=== PATIENT | male | born 1950 | race Caucasian/White ===

== ENCOUNTER 2019-08-13 15:35 | Emergency (ER) | payer MEDICARE ==
[~2019-08-13] VITALS: Ht 170.2 cm; Wt 87.0 kg
[2019-08-13] MEDS ORDERED: LISINOPRIL5 MG PO (15:56)
[2019-08-13] MEDS ORDERED: ATENOLOL50 MG PO (15:56)
[2019-08-13] MEDS ORDERED: BAYER CHEWABLE81 MG PO (15:56)
[2019-08-13] MEDS ORDERED: SIMVASTATIN40 MG PO (15:57)
[2019-08-13] MEDS ORDERED: PLAVIX75 MG PO (15:57)
[2019-08-13] MEDS ORDERED: HYDROCHLOROTHIA50 MG PO (15:59)
[2019-08-13] MEDS ORDERED: METFORMIN500 M2 PO (16:00)
[2019-08-13 16:13] LABS: HEMOGLOBIN 13.7 g/dl (14.0-18.0); IMMATURE GRANULOCYTES 0.7 % (0.0-5.0); MEAN CORPUSCULAR HGB 29.5 pG CALC (26.0-32.0); MEAN CORPUSCULAR HGB CONC 34.3 g/dL CAL (32.0-36.0); NEUT# 12.86 thou/uL (1.82-7.42); RED BLOOD COUNT 4.65 mill/uL (4.70-6.10); RED CELL DISTRI WIDTH 12.3 % (11.5-15.5)
[2019-08-13 16:26] LABS: ALBUMIN 4.3 g/dL (3.2-5.0); ALKALINE PHOSPHATASE 88 u/l (38-126); ANION GAP 13 (6-22 (CALC)); BILIRUBIN, TOTAL 0.7 mg/dL (0.0-1.4); BUN 18 mg/dL (8-23); BUN/CREATININE RATIO 19 (12-20 (CALC)); CARBON DIOXIDE 31 mmol/l (22-30); CHLORIDE 92 mmol/l (95-108); CREATININE 0.9 mg/dL (0.7-1.3); GFR > 60 ML/MIN (>=60 (CALC)); GFR FOR AFR.AMER. > 60 ML/MIN (>=60 (CALC)); POTASSIUM 4.4 mmol/l (3.5-5.1); SGOT/AST 18 u/l (19-48); SODIUM 131 mmol/l (137-146); TOTAL PROTEIN 7.3 g/dL (6.3-8.2)
[2019-08-13 17:11] LABS: URINE BILIRUBIN - DIPSTICK NEGATIVE (NEGATIVE); URINE BLOOD DIPSTICK NEGATIVE (NEGATIVE); URINE COLOR YELLOW; URINE GLUCOSE - DIPSTICK NEGATIVE (NEGATIVE); URINE KETONE NEGATIVE (NEGATIVE); URINE LEUK ESTERASE NEGATIVE (NEGATIVE); URINE NITRITE - DIPSTICK NEGATIVE (Negative); URINE PH 6.5 (4.5-8.0); URINE PROTEIN - DIPSTICK NEGATIVE (NEG-TRACE); URINE UROBILINOGEN - DIPSTICK 0.2 E.U./dL (0.2)
[2019-08-13 17:30] LABS: BARBITURATES NEGATIVE (NEGATIVE); COCAINE NEGATIVE (NEGATIVE); METHADONE NEGATIVE (NEGATIVE); TETRAHYDROCANNABIONOL NEGATIVE (NEGATIVE); TRICYLIC ANTIDEPRESSANTS NEGATIVE (NEGATIVE)
[2019-08-13 17:31] LABS: OXCYCODONE POSITIVE (NEGATIVE)
[2019-08-13] MEDS ORDERED: BACTRIM DS1 TAB PO (17:41)
[2019-08-13 17:59] VITALS: BP 164/77
== END 2019-08-13 17:57 | disposition home or self-care (01) ==
LOC: ED 15:35
DX: K13.0 Diseases of lips (principal); E11.9 Type 2 diabetes mellitus without complications; I10 Essential (primary) hypertension; Z86.73 Personal history of transient ischemic attack (TIA), and cerebral infarction without residual deficits; Z79.84 Long term (current) use of oral hypoglycemic drugs

== ENCOUNTER 2019-11-04 22:36 | Observation (INO) | payer MEDICARE ==
[~2019-11-04] VITALS: Ht 170.2 cm; Wt 81.0 kg
[~2019-11-04 22:36] MED LIST: ATENOLOL50 MG PO; BACTRIM DS1 TAB PO; BAYER CHEWABLE81 MG PO; HYDROCHLOROTHIA50 MG PO; LISINOPRIL5 MG PO; METFORMIN500 M2 PO; PLAVIX75 MG PO; SIMVASTATIN40 MG PO
[2019-11-04] MEDS ORDERED: CUBICIN500 MG IV (23:16)
[2019-11-04] MEDS ORDERED: AMBIEN5 MG PO (23:16)
[2019-11-04 23:19] LABS: IMMATURE GRANULOCYTES 1.4 % (0.0-5.0); MEAN CELL VOLUME 89.6 fL CALC (80.0-100.0); MEAN CORPUSCULAR HGB 27.9 pG CALC (26.0-32.0); MEAN CORPUSCULAR HGB CONC 31.1 g/dL CAL (32.0-36.0); NEUT# 10.37 thou/uL (1.82-7.42); RED BLOOD COUNT 3.66 mill/uL (4.70-6.10); RED CELL DISTRI WIDTH 13.1 % (11.5-15.5)
[2019-11-04 23:22] LABS: HEMATOCRIT 32.8 % (39.0-50.0); HEMOGLOBIN 10.2 g/dl (14.0-18.0)
[2019-11-04] MEDS ORDERED: OXYCODONE5 M1 PO (23:22)
[2019-11-04 23:36] LABS: ALKALINE PHOSPHATASE 125 u/l (38-126); BUN 24 mg/dL (8-23); BUN/CREATININE RATIO 17 (12-20 (CALC)); CARBON DIOXIDE 33 mmol/l (22-30); CHLORIDE 94 mmol/l (95-108); CREATININE 1.5 mg/dL (0.7-1.3); GFR 47 ML/MIN (>=60 (CALC)); GFR FOR AFR.AMER. 56 ML/MIN (>=60 (CALC)); SODIUM 133 mmol/l (137-146); TOTAL PROTEIN 6.6 g/dL (6.3-8.2)
[2019-11-04 23:37] LABS: ALBUMIN 3.3 g/dL (3.2-5.0); ANION GAP 10 (6-22 (CALC)); BILIRUBIN, TOTAL 0.4 mg/dL (0.0-1.4); POTASSIUM 3.5 mmol/l (3.5-5.1); SGOT/AST 51 u/l (19-48)
[2019-11-04 23:48] LABS: MYOGLOBIN 69 ng/mL (0 - 121)
[2019-11-05 02:20] VITALS: BP 118/66
[2019-11-05 04:29] VITALS: BP 117/70
[2019-11-05 06:57] LABS: HEMATOCRIT 31.4 % (39.0-50.0); HEMOGLOBIN 9.9 g/dl (14.0-18.0); IMMATURE GRANULOCYTES 1.4 % (0.0-5.0); MEAN CORPUSCULAR HGB CONC 31.5 g/dL CAL (32.0-36.0); NEUT# 9.68 thou/uL (1.82-7.42); RED BLOOD COUNT 3.53 mill/uL (4.70-6.10); RED CELL DISTRI WIDTH 13.2 % (11.5-15.5)
[2019-11-05 08:17] VITALS: BP 139/53
[2019-11-05] MEDS ORDERED: SENOKOT EXTRA17.2 MG PO (11:20)
== END 2019-11-05 12:43 | disposition home or self-care (01) ==
LOC: ED 22:36 → ED-I 11-05 01:38 → ED 11-05 01:53 → MS2 11-05 01:54
PROVIDERS: Emergency Medicine; ADMIT Internal Medicine; ATTEND Internal Medicine
DX: R07.81 Pleurodynia (principal); D72.829 Elevated white blood cell count, unspecified; K59.00 Constipation, unspecified; E11.9 Type 2 diabetes mellitus without complications; I10 Essential (primary) hypertension; E78.5 Hyperlipidemia, unspecified; G89.29 Other chronic pain; M54.9 Dorsalgia, unspecified; Z86.73 Personal history of transient ischemic attack (TIA), and cerebral infarction without residual deficits; Z79.84 Long term (current) use of oral hypoglycemic drugs; Z98.890 Other specified postprocedural states; Z79.2 Long term (current) use of antibiotics; Z79.82 Long term (current) use of aspirin; Z20.828 Contact with and (suspected) exposure to other viral communicable diseases
CPT/HCPCS: G0378; Q9967

== ENCOUNTER 2020-01-22 15:48 | Inpatient (IN) | payer MEDICARE ==
[~2020-01-22] VITALS: Ht 170.2 cm; Wt 79.0 kg
[~2020-01-22 15:48] MED LIST changes: +AMBIEN5 MG PO; +CUBICIN500 MG IV; +OXYCODONE5 M1 PO; +SENOKOT EXTRA17.2 MG PO
--- NOTE | 2020-01-22 15:48 | NUR ---
PT TO ROOM VIA EMS
--- NOTE | 2020-01-22 16:50 | NUR ---
AT BEDSIDE. URINE COLLECTED AT THIS TIME. IV FLUIDS INFUSING WITHOUT COMPLICATIONS. STABLE ON MONITOR.
[2020-01-22 16:58] LABS: IMMATURE GRANULOCYTES 0.4 % (0.0-5.0); MEAN CELL VOLUME 88.6 fL CALC (80.0-100.0); MEAN CORPUSCULAR HGB 28.8 pG CALC (26.0-32.0); MEAN CORPUSCULAR HGB CONC 32.5 g/dL CAL (32.0-36.0); NEUT# 10.58 thou/uL (1.82-7.42); RED BLOOD COUNT 4.93 mill/uL (4.70-6.10); RED CELL DISTRI WIDTH 13.9 % (11.5-15.5)
[2020-01-22 17:03] LABS: HEMATOCRIT 43.7 % (39.0-50.0); HEMOGLOBIN 14.2 g/dl (14.0-18.0)
[2020-01-22 17:14] LABS: URINE BILIRUBIN - DIPSTICK NEGATIVE (NEGATIVE); URINE BLOOD DIPSTICK LARGE (NEGATIVE); URINE COLOR YELLOW; URINE GLUCOSE - DIPSTICK NEGATIVE (NEGATIVE); URINE KETONE NEGATIVE (NEGATIVE); URINE PROTEIN - DIPSTICK 30 mg/dL (NEG-TRACE)
[2020-01-22 17:17] LABS: URINE LEUK ESTERASE MODERATE (NEGATIVE); URINE NITRITE - DIPSTICK POSITIVE (Negative)
[2020-01-22 17:17] LABS: ALBUMIN 3.8 g/dL (3.2-5.0); ALKALINE PHOSPHATASE 91 u/l (38-126); ANION GAP 13 (6-22 (CALC)); BUN 25 mg/dL (8-23); BUN/CREATININE RATIO 27 (12-20 (CALC)); CARBON DIOXIDE 35 mmol/l (22-30); CHLORIDE 90 mmol/l (95-108); CREATININE 0.9 mg/dL (0.7-1.3); GFR > 60 ML/MIN (>=60 (CALC)); GFR FOR AFR.AMER. > 60 ML/MIN (>=60 (CALC)); POTASSIUM 3.7 mmol/l (3.5-5.1); SGOT/AST 23 u/l (19-48); SODIUM 134 mmol/l (137-146); TOTAL PROTEIN 6.8 g/dL (6.3-8.2)
[2020-01-22 17:19] LABS: BILIRUBIN, TOTAL 0.8 mg/dL (0.0-1.4)
[2020-01-22 17:32] LABS: URINE BACTERIA MODERATE hpf; URINE RBC 25-50 RBC/hpf (0-5); URINE WBC 50-100 WBC/hpf (0-5)
--- NOTE | 2020-01-22 17:45 | NUR ---
IV MEDS INFUSING WITHOUT COMPLICATIONS. STABLE ON MONITOR. REMAINS AT BEDSIDE. NO COMPLAINTS AT THIS TIME.
--- NOTE | 2020-01-22 18:45 | NUR ---
PT IN RADIOLOGY AT THIS TIME.
[2020-01-22] MEDS ORDERED: LORTAB 1010 MG PO (19:00)
--- NOTE | 2020-01-22 19:00 | NUR ---
RETURNED FROM CT.
--- NOTE | 2020-01-22 19:10 | NUR ---
PT BACK FROM RADIOLOGY. RECONNECTED TO EQUIP. PT RESTING. AT BEDSIDE.
--- NOTE | 2020-01-22 19:36 | NUR ---
REPEAT LACTIC DRAWN. PT C/O PAIN WHEN LEFT ARM TOUCHED. STATES PINCHED NERVE FROM C3-7.
--- NOTE | 2020-01-22 20:44 | NUR ---
REPORT TO SERGIO/NURSE/MED-SURG.
--- NOTE | 2020-01-22 20:50 | NUR ---
TO FLOOR VIA STRETCHER WITH POCKET MONITOR. PT TRANSFERRED TO BED WITH SLIDER. WAS OFFERED TO ESCORT PT TO FLOOR BUT DECLINED. SHE HAD WRITTEN A NOTE FOR ME TO GIVE TO ADMISSION NURSE.
[2020-01-22 20:55] VITALS: BP 125/59
--- NOTE | 2020-01-22 20:55 | NUR ---
RECEIVED REPORT FROM NURSE YOHANA, PATIENT TRANSPORTED VIA BED, USING THREE PERSON ASSIST SLID TO BED, PATIENT REPOSITIONED ORINETED TO ROOM AND CALL LIGHT SYSTEM
--- NOTE | 2020-01-22 22:19 | NUR ---
SPOKE TO , PATIENT IS REFERRED TO A UROLOGIST, AND CONSENT FOR CYSTOSCOPY THAT NEEDS TO BE SIGNED, STATED SHE WILL BE COMING TOMORROW AROUND 8AM.
--- NOTE | 2020-01-22 22:49 | NUR ---
CONTACTED DR. PASTOR ABOUT ORDER FOR EKG MADE AWARE THE EKG DONE AT ED EARLIER WITH ORDER TO DISCONTINUE THE OTHER EKG ORDER.
[2020-01-23] VITALS (10 sets, daily range): BP systolic 81–140; BP diastolic 33–71
--- NOTE | 2020-01-23 01:16 | NUR ---
PATIENT APPEARS TO BE SLEEPING WITH EYES CLOSED, BREATHING EVEN UNLABORED CALL LIGHT AT REACH.
--- NOTE | 2020-01-23 04:06 | NUR ---
PATIENT RESTING INBED WITH EYES CLOSED, BREATHING EVEN UNLABORED, NO DISCOMFORTS NOTED AT THIS TIMECALL LIGHT AT REACH/
--- NOTE | 2020-01-23 07:59 | NUR ---
RECIEVED REPORT FROM Emmanuel HUERTA RN. PT RESTING IN LOW FOWLERS POSITION WITH AT BEDSIDE UPON ENTERING ROOM. INTRODUCED SELF TO PT AND DISCUSSED POC. PT IS A/O X2. ASSESSMENT AND VITALS COMPLETED AT THIS TIME.TEMP 100.7, BP 113/52, HR 75, O2 96% ON ROOM AIR. RESPIRATIONS ARE EVEN AND UNLABORED WITH NO SIGNS OF DISTRESS NOTED. LUNG SOUNDS ARE CLEAR. HEART RHYTHM IS NORMAL WITH TELE IN PLACE. BOWEL SOUNDS ARE ACTIVE IN ALL QUADRANTS, LAST REPORTED SCANT BM 01/23/20. INFORMS WRITTER THAT PT TAKES STOOL SOFTENERS AND MOM TO ASSIST WITH BM. MOM UNABLE TO BE ADMINISTERED DUE TO NPO STATUS. MD TO BE NOTIFIED. PT COMPLAINS OF BACK PAIN. TYLENOL ADMINISTERED FOR PAIN AND TEMP. PT SCHEDULED TO HAVE CYSTOSCOPY AT 1600. PT INFORMED OF PROCEDURE AND TIME. DR NOT YET TO SPEAK WITH PT. CONSENT NOT OBTAINED. PT PRESENTS WITH SMALL HOLE ON COCCYX, SKIN INTACT. PICTURES OBTAINS. PT DENIES OF DISCOMFORTS AT THIS TIME. ALL SAFETY PRECAUTIONS ARE IN PLACE WITH CALL LIGHT IN REACH. WILL CONTINUE TO MONITOR.
--- NOTE | 2020-01-23 11:15 | NUR ---
OR NURSE AT BEDSIDE DISCUSSING POC WITH PT
--- NOTE | 2020-01-23 11:40 | NUR ---
PT TRANSFER [facility] ROOM 270 TO 261 VIA BED DUE TO LEAK IN BATHROOM
--- NOTE | 2020-01-23 11:50 | NUR ---
PT CHART REVIEWED. PT SCREENED FOR INTERVENTION. PT WOULD BENEFIT FROM PT CONSULT IF MEDICAL AGREES.
--- NOTE | 2020-01-23 12:15 | NUR ---
PT SLEEPING IN LOW FOWLERS POSITION. RESPIRATIONS ARE EVEN AND UNLABORED WITH NO SIGNS OF DISTRESS NOTED. NO SIGNS OF ANY PAIN OR DISTRESS NOTED. ALL SAFTEY PRECAUTIONS ARE IN PLACE WITH CALL LIGHT IN REACH. WILL CONTINUE TO MONITOR
--- NOTE | 2020-01-23 13:13 | NUR ---
ST screen completed. Per discussion with RN on floor, patient just returned from surgery and is NPO waiting diet advancement by MD. Please consult ST if warranted.
--- NOTE | 2020-01-23 15:47 | NUR ---
PT TRANSPORTED TO OR VIA BED ACCOMPAINED BY OR STAFF AND IN STABLE CONDITION
--- NOTE | 2020-01-23 18:28 | NUR ---
PT ARRIVED TO [facility] ROOM 261 VIA BED ACCOMPAINED BY OR STAFF. VITALS OBATINED. BP 81/33, HR 70, O2 96% ON ROOM AIR. RESPIATIONS ARE EVEN AND UNLABORED WITH NO SIGNS OF DISTRESS NOTED. PT DENIES OF ANY PAIN OR DISCOMFORTS AT THIS TIME.PT DENIES ANY PAIN OR DISCOMFORTS AT THIS TIME. ALL SAFETY PRECAUTIONS ARE IN PLACE WITH CALL LIGHT IN REACH. WILL CONTINUE TO MONITOR.
--- NOTE | 2020-01-23 19:44 | NUR ---
RECEIVED REPORT FROM NURSE VELARDE PATIENT RESTING IN BED, IN ROOM, BREATHING UNLABORED, CALL LIGHT AT REACH.
--- NOTE | 2020-01-23 21:00 | NUR ---
PATIENT ALERT ORIENTED X 2, ABLE TO MAKE NEEDS KNONW, WITH ONGOING IV G 20 NS @ 125CC/HR INFUSING WELL ON LFA, REMAINS ON TELE SB 59, BOWEL SOUND ACTIVE, BS 106 NO COVERAGE GIVEN, PATIENT REPOSITIONED, OFFERED MOM REFUSED AT THIS TIME, STATED WILL TRY TO SLEEP, CALL LIGHT AT REACH.
--- NOTE | 2020-01-23 23:40 | NUR ---
PATIENT ASLEEP AT THIS TIME, EVEN UNLABORED RESPIRATION, NO DISCOMFORTS NOTED CALL LIGHT AT REACH.
[2020-01-24 00:38] VITALS: BP 141/90
--- NOTE | 2020-01-24 02:11 | NUR ---
PATIENT ASLEEP, INCONTINENT OF URINE WITH BLOOD TINGED SEEN ON UNDERPAD , CARE PROVIDED, BLADDER SCAN DONE 78CC AT THIS TIME.
--- NOTE | 2020-01-24 02:22 | NUR ---
PATIENT ACCIDENTALLY PULLED IV, NEW IV REINSERTED ON LFA G22.
--- NOTE | 2020-01-24 04:53 | NUR ---
PATIENT CONFUSED WAS ASKING FOR , PATIENT REORIENTED, EFFECTIVE, PATIENT FEELS URGE TO VOID, INCONTINENT OF BLADDER AT THIS TIME, STILL WITH BLOOD TINGED URINE, PATIENT RESTING IN BED CALL LIGHT AT REACH.
[2020-01-24 05:12] VITALS: BP 95/50
--- NOTE | 2020-01-24 07:05 | NUR ---
REPORT RECEIVED FROM MELISSA SINHA;PT APPEARS TO BE SLEEPING IN SUPINE POSITION;NO S/S OF DISTRESS NOTED;RESPIRATIONS EVEN AND UNLABORED ON RA;IV FLUIDS INFUSING WITH EASE PER ORDER;TELE MONITORING IN PLACE;ACCUCHECK 110, NO COVERAGE NEEDED;ALL SAFETY PRECAUTIONS REMAIN IN PLACE WITH BED IN THE LOWEST POSITION AND CALL LIGHT IN REACH;WILL CONTINUE TO MONITOR
[2020-01-24 08:17] VITALS: BP 96/59
--- NOTE | 2020-01-24 08:20 | NUR ---
PT RESTING IN SEMI FOWLERS POSITION,A&O TO SELF ONLY;VS OBTAINED AND ASSESSMENT COMPLETED;PT DENIES ANY CURRENT PAIN OR DISCOMFORTS,PAIN SCALE AND REPORTING EDUCATED;RESPIRATIONS EVEN AND UNLABORED ON RA,CLEAR LUNG SOUNDS;ABDOMEN SOFT ON PALPATION AND ACTIVE IN ALL 4 QUADRANTS, LAST BM 01/21/20;PT MEDICATED WITH MOM TO ASSIST IN BOWEL CARE;PT VOIDING INTO URINAL LACHELLE/BLOOD TINGED URINE;WEAK PEDAL PULSES;ABRASION NOTED TO RIGHT KNEE;#22G TO LFA INFUSING NS @ 125ML/HR,SITE APPEARS HEALTHY;TELE MONITORING IN PLACE;PT DENIES ANY ADDITIONAL NEEDS AT THIS TIME AND IS ENCOURAGED TO CALL FOR ASSISTANCE IF NEEDED;FALL PRECAUTIONS IN PLACE WITH BED IN THE LOWEST POSITION AND CALL LIGHT IN REACH;WILL CONTINUE TO MONITOR
--- NOTE | 2020-01-24 08:25 | NUR ---
AT BEDSIDE DISCUSSING POC.
[2020-01-24 09:08] LABS: MEAN CELL VOLUME 88.6 fL CALC (80.0-100.0); MEAN CORPUSCULAR HGB 28.6 pG CALC (26.0-32.0); MEAN CORPUSCULAR HGB CONC 32.3 g/dL CAL (32.0-36.0); RED BLOOD COUNT 3.77 mill/uL (4.70-6.10)
[2020-01-24 09:20] LABS: HEMATOCRIT 33.4 % (39.0-50.0); HEMOGLOBIN 10.8 g/dl (14.0-18.0)
[2020-01-24 09:35] LABS: ALKALINE PHOSPHATASE 51 u/l (38-126); BILIRUBIN, TOTAL 0.6 mg/dL (0.0-1.4); BUN 22 mg/dL (8-23); BUN/CREATININE RATIO 20 (12-20 (CALC)); CREATININE 1.1 mg/dL (0.7-1.3); GFR > 60 ML/MIN (>=60 (CALC)); GFR FOR AFR.AMER. > 60 ML/MIN (>=60 (CALC)); SODIUM 138 mmol/l (137-146)
[2020-01-24 09:36] LABS: ALBUMIN 2.6 g/dL (3.2-5.0); ANION GAP 10 (6-22 (CALC)); CARBON DIOXIDE 25 mmol/l (22-30); CHLORIDE 106 mmol/l (95-108); SGOT/AST 46 u/l (19-48); TOTAL PROTEIN 5.1 g/dL (6.3-8.2)
[2020-01-24 10:30] VITALS: BP 94/62
--- NOTE | 2020-01-24 11:45 | NUR ---
PT RESTING IN SUPINE POSITION WITH SPOUSE AT BEDSIDE;RESPIRATIONS EVEN AND UNLABORED ON RA;PT REPORTS GENERALIZED PAIN RATING 10/10 ON THE PAIN SCALE AND REQUESTS PAIN MEDICATION,PT MEDICATED WITH PRN LORTAB 10 PO AT THIS TIME;IV FLUIDS INFUSING WITH EASE PER ORDER WITH ABX RUNNING WELL;ACCUCHECK 138, NO COVERAGE NEEDED;TELE MONITORING IN PLACE;ASSESSMENT REMAINS UNCHANGED;ENCOURAGED TO CALL FOR ASSISTANCE IF NEEDED;FALL PRECAUTIONS IN PLACE WITH CALL LIGHT IN REACH;WILL CONTINUE TO MONITOR
--- NOTE | 2020-01-24 14:40 | NUR ---
CONSULT COMPLETED AT THIS TIME.
[2020-01-24 15:00] VITALS: BP 96/55
--- NOTE | 2020-01-24 16:05 | NUR ---
PT RESTING IN SEMI FOWLERS POSITION;RESPIRATIONS EVEN AND UNLABORED ON RA;PT REPORTS GENERALIZED PAIN RATING 10/10 ON THE PAIN SCALE AND REQUESTS PAIN MEDICATION,PT MEDICATED WITH PRN LORTAB 10 PO;IV FLUIDS CONTINUE TO INFUSE TO LFA WITH EASE PER ORDER;TELE MONITORING IN PLACE;PT DENIES ANY ADDITIONAL NEEDS AT THIS TIME AND IS ENCOURAGED TO CALL FOR ASSISTANCE IF NEEDED;FALL PRECAUTIONS IN PLACE WITH BED IN THE LOWEST POSITION AND CALL LIGHT IN REACH;WILL CONTINUE TO MONITOR
[2020-01-24 19:00] VITALS: BP 126/67
--- NOTE | 2020-01-24 20:00 | NUR ---
PATIENT RESTING IN BED-EASY TO AROUSE. AWAKE ALERT BUT CONFUSED TO PLACE AND TIME. ORIENTED TO PERSON, MONTH AND YEAR. PATIENT IS VOIDING SMALL AMT OF DARK LACHELLE URINE IN URINAL. TELE MONITOR IN PLACE. IVF NS PATENT AND INFUSING AT KVO RATE VIA LFA SITE. SITE APPEARS HEALTHY AT THIS TIME. REORIENTED PATIENT TO PLACE AND TIME. SAFETY PRECAUTIONS REINFORCED. CALL LIGHT IN REACH. WILL CONT TO MONITOR.
--- NOTE | 2020-01-24 21:30 | NUR ---
PATIENT RESTING IN BED-MEDICATED FOR PAIN WITH LORTAB 10/325MG PO. BS-131-NO SLIDING SCALE COVERAGE NEEDED. SAFETY PRECAUTIONS REINFORCED. CALL LIGHT IN REACH. WILL CONT TO MONITOR.
[2020-01-25] VITALS: BP 128/66
--- NOTE | 2020-01-25 | NUR ---
PATIENT APPEARS SLEEPING AT THIS TIME WITH EYE MASK OVER HIS EYE. RESP ARE EVEN AND UNLABORED. IVF NS PATENT AND INFUSING VIA LFA SITE AT KVO RATE. TELE MONITOR IN PLACE. CALL LIGHT IN REACH. WILL CONT TO MONITOR.
--- NOTE | 2020-01-25 02:57 | NUR ---
PATIENT RESTLESS IN BED-CALLING OUT-C/O PAIN TO BLE. PATIENT ORIENTED TO PERSON ONLY. CONFUSED TO TIME AND PLACE. MNEDICATED FOR PAIN WITH LORTAB 10/325MG PO FOR 8/10 ON PAIN SCALE. ABLE TO REORIENT PATIENT QUITE EASILY. SAFETY PRECAUTIONS REINFORCED. CALL LIGHT IN REACH. WILL CONT TO MONITOR.
[2020-01-25 04:00] VITALS: BP 130/72
--- NOTE | 2020-01-25 05:11 | NUR ---
PATIENT RESTING IN BED WITH EYES CLOSED-APPEARS SLEEPING AT THIS TIME. RESP ARE EVEN AND UNLABORED. TELE MONITOR IN PLACE. CALL LIGHT IN REACH. WILL CONT TO MONITOR.
[2020-01-25 05:38] LABS: HEMATOCRIT 33.3 % (39.0-50.0); HEMOGLOBIN 10.7 g/dl (14.0-18.0); MEAN CELL VOLUME 89.5 fL CALC (80.0-100.0); MEAN CORPUSCULAR HGB 28.8 pG CALC (26.0-32.0); MEAN CORPUSCULAR HGB CONC 32.1 g/dL CAL (32.0-36.0); RED BLOOD COUNT 3.72 mill/uL (4.70-6.10); RED CELL DISTRI WIDTH 14.3 % (11.5-15.5)
[2020-01-25 05:55] LABS: ALBUMIN 2.7 g/dL (3.2-5.0); ALKALINE PHOSPHATASE 56 u/l (38-126); ANION GAP 8 (6-22 (CALC)); BUN 16 mg/dL (8-23); BUN/CREATININE RATIO 18 (12-20 (CALC)); CARBON DIOXIDE 27 mmol/l (22-30); CHLORIDE 107 mmol/l (95-108); CREATININE 0.9 mg/dL (0.7-1.3); GFR > 60 ML/MIN (>=60 (CALC)); GFR FOR AFR.AMER. > 60 ML/MIN (>=60 (CALC)); POTASSIUM 3.6 mmol/l (3.5-5.1); SGOT/AST 50 u/l (19-48); SODIUM 138 mmol/l (137-146); TOTAL PROTEIN 5.2 g/dL (6.3-8.2)
[2020-01-25 05:57] LABS: BILIRUBIN, TOTAL 0.3 mg/dL (0.0-1.4)
--- NOTE | 2020-01-25 07:05 | NUR ---
REPORT RECEIVED FROM MELISSA BIGGS;PT APPEARS TO BE SLEEPING IN SEMI FOWLERS POSITION;RESPIRATIONS EVEN AND UNLABORED ON RA;NO S/S OF DISTRESS NOTED;IV FLUIDS INFUSING WITH EASE PER ORDER;TELE MONITORING IN PLACE;ACCUCHECK 90, NO COVERAGE NEEDED;ALL SAFETY PRECAUTIONS IN PLACE WITH BED IN THE LOWEST POSITION AND CALL LIGHT IN REACH;WILL CONTINUE TO MONITOR
[2020-01-25 08:08] VITALS: BP 131/76
--- NOTE | 2020-01-25 08:10 | NUR ---
PT RESTING IN SUPINE POSITION,A&O X2 WITH SPOUSE AT BEDSIDE;VS OBTAINED AND ASSESSMENT COMPLETED;PT REPORTS GENERALIZED PAIN RATING 10/10 ON THE PAIN SCALE AND REQUESTS PRN PAIN MEDICATION, PT TO BE MEDICATED WITH PRN LORTAB 10 PO;RESPIRATIONS EVEN AND UNLABORED ON RA,CLEAR LUNG SOUNDS;ABDOMEN SOFT ON PALPATION AND ACTIVE IN ALL 4 QUADRANTS, LAST BM 01/21/20;PT MEDICATED WITH MOM AT THIS TIME AND NOTIFIED ANRP OF LAST BM;WEAK PEDAL PULSES;ABRASION RT KNEE JAVA LEAD ARCHITECT;TELE MONITORING IN PLACE;#20G TO LFA INFUSING NS @ 10ML/HR,SITE APPEARS HEALTHY;PT DENIES ANY ADDITIONAL NEEDS AT THIS TIME AND IS ENCOURAGED TO CALL FOR ASSISTANCE IF NEEDED;FALL PRECAUTIONS IN PLACE WITH BED IN THE LOWEST POSITION AND CALL LIGHT IN REACH;WILL CONTINUE TO MONITOR
--- NOTE | 2020-01-25 08:22 | NUR ---
AT BEDSIDE DISCUSSING POC WITH PT AND SPOUSE.
[2020-01-25 10:40] VITALS: BP 114/81
--- NOTE | 2020-01-25 11:30 | NUR ---
PT APPEARS TO BE SLEEPING IN SUPINE POSITION WITH SPOUSE AT BEDSIDE;RESPIRATIONS EVEN AND UNLABORED ON RA;NO S/S OF DISTRESS NOTED;TELE MONITORING IN PLACE;IV FLUIDS CONTINUE TO INFUSE WITH EASE PER ORDER;ACCUCHECK 115, NO COVERAGE NEEDED;ASSESSMENT REMAINS UNCHANGED AT THIS TIME;FALL PRECAUTIONS IN PLACE WITH BED IN THE LOWEST POSITION AND CALL LIGHT IN REACH;WILL CONTINUE TO MONITOR
--- NOTE | 2020-01-25 12:40 | NUR ---
PT REPORTS GENERALIZED PAIN RATING 9/10 ON THE PAIN SCALE AND REQUESTS PAIN MEDICATION,PT MEDICATED WITH PRN LORTAB 10 PO;PT AND SPOUSE DENY ANY ADDITIONAL NEEDS;ENCOURAGED TO CALL FOR ASSISTANCE IF NEEDED;FALL PRECAUTIONS IN PLACE WITH CALL LIGHT IN REACH;WILL CONTINUE TO MONITOR
--- NOTE | 2020-01-25 15:10 | NUR ---
PT RESTING IN SEMI FOWLERS POSITION WATCHING TV;RESPIRATIONS EVEN AND UNLABORED ON RA;PT DENIES ANY CURRENT PAIN OR NEEDS;IV FLUIDS CONTINUE TO INFUSE WITH EASE PER ORDER;TELE MONITORING IN PLACE;PT DENIES ANY ADDITIONAL NEEDS AT THIS TIME AND IS ENCOURAGED TO CALL FOR ASSISTANCE IF NEEDED;FALL PRECAUTIONS REMAIN IN PLACE WITH BED IN THE LOWEST POSITION AND CALL LIGHT IN REACH;WILL CONTINUE TO MONITOR
[2020-01-25 15:11] VITALS: BP 107/50
--- NOTE | 2020-01-25 16:35 | NUR ---
PT MEDICATED WITH PRN LORTAB 10 PO FOR GENERALIZED PAIN RATING 8/10 ON THE PAIN SCALE,WILL CONTINUE TO MONITOR FOR EFFECTIVENESS
[2020-01-25 19:00] VITALS: BP 120/57
--- NOTE | 2020-01-25 19:52 | NUR ---
PATIENT RESTING IN BED AT THIS TIME WITH HOB SLIGHTLY ELEVATED. PATIENT WITH EYE MASK OVER HIS EYES. RESP ARE EVEN AND UNLABORED-APPEARS SLEEPING. TELE MONITOR IN PLACE. IVF NS PATENT AND INFUSING AT KVO RATE VIA RFA SITE. SITE APPEARS HEALTHY AT THIS TIME. CALL LIGHT IN REACH. WILL CONT TO MONITOR.
--- NOTE | 2020-01-25 20:40 | NUR ---
PATIENT RESTING IN BED-AWAKE ALERT AND ORIENTED TO PERSON PLACE AND TIME TONIGHT. HS MEDS PROVIDED ALONG WITH LORTAB 10/325 FOR GENERALIZED PAIN-8/10 ON PAIN SCALE. PPATIENT VOIDED 100CC OF DARK LACHELLE URINE IN URINAL.OFFERED PATIENT DULCOLAX SUPP BUT PATIENT DECLINED AT THIS TIME-MAYBE IN THE MORNING PER PATIENT.SAFETY PRECAUTIONS REINFORCED. CALL LIGHT IN REACH. WILL CONT TO MONITOR. 2129-PATIENT STATES NO RELIEF FROM PAIN MEDS YET-STILL 8/10 ON PAIN SCALE. MEDICATED WITH AMBEIN 10MG PO PER PATIENT REQUEST. CALL LIGHT IN REACH. WILL CONT TO MONITOR.
[2020-01-26] VITALS: BP 143/62
--- NOTE | 2020-01-26 00:21 | NUR ---
PATIENT RESTING IN BED AT THIS TIME WITH EYE DARY IN PLACE. RESP ARE EVEN AND UNLABORED-APPEARS SLEEPING AT THIS TIME. TELE MONITOR IN PLACE. IVF PATENT AND INFUSING AT KVO RATE. CALL LIGHT IN REACH. WILL CONT TO MONITOR.
--- NOTE | 2020-01-26 02:00 | NUR ---
PATIENT FOUND WITH IV WRAPPED AROUND HIM-PATIENT CONFUSED BUT EASILY REORIENTED. NEW IV TUBING PLACED. IVF NS PATENT AND INFUSING VIA LEFT FOREARM SITE AT KVO RATE. TELE MONITOR IN PLACE. REPOSITIONED IN BED. SAFETY PRECAUTIONS REINFORCED. CALL LIGHT IN REACH. WILL CONT TO MONITOR.
[2020-01-26 04:00] VITALS: BP 138/48
--- NOTE | 2020-01-26 04:00 | NUR ---
PATIENT APPEARS SLEEPING WITH EYE MASK IN PLACE. RESP ARE EVEN AND UNLABORED AT THIS TIME. TELE MONITOR IN PLACE. IVF PATENT AND INFUSING VIA LEFT FOREARM SITE AT KVO RATE. CALL LIGHT IN REACH. WILL CONT TO MONITOR.
--- NOTE | 2020-01-26 07:34 | NUR ---
DR. BRYANT IN TO SEE PATIENT AND EXPLAINED TO PATIENT THAT HE HAS A URINARY INFECTION AT THIS TIME BUT IS BEING RESOLVED WITH CURRENT ABX. TREATMENT. PATIENT SIMONE ANY OTHER NEEDS AT THIS TIME AND REPORTS HAD A SMALL LOOSE STOOL THIS MORNING.
[2020-01-26 07:45] VITALS: BP 132/58
--- NOTE | 2020-01-26 08:00 | NUR ---
PATIENT ASSESSMENT DONE (SEE INTERVENTIONS) PATIENT ALERT AND ORIENTATED. PATIENT STATES PAIN IS A (2), EJ REPORTS HE HAS CHRONIC BACK PAIN. PATIENT WAS REPOSITIONED AT THIS TIME. PATIENT DENIES ALL OTHER NEEDS.
[2020-01-26] MEDS ORDERED: TRAMADOL HCL50 MG PO (09:27)
[2020-01-26] MEDS ORDERED: LEVAQUIN750 M1 PO (09:27)
[2020-01-26 11:08] VITALS: BP 136/60
--- NOTE | 2020-01-26 13:00 | NUR ---
PATIENT D/C AT THIS TIME WITH TRANSPORTATION ALONG WITH . ALL PATIENTS BELONGING SENT WITH PATIENT. D/C PAPERWORK GONE OVER WITH PATIENT AND AND PRESCRIPTIONS (TRAMODOL AND AXB. GIVEN TO .) VERBALIZES UNDERSTANDING.
== END 2020-01-26 12:59 | disposition home health service (06) | DRG 872 ==
LOC: ED 15:48 → ED-I 18:30 → ED 18:51 → MS2 18:52 → ED-I 18:53 → ED 18:53 → MS2 01-23 09:42
PROVIDERS: Nurse Practitioner Family; ADMIT Internal Medicine; ATTEND Internal Medicine
PROC: 0TJB8ZZ Inspection of Bladder, Via Natural or Artificial Opening Endoscopic (ICD-10-PCS; principal; 2020-01-23)
DX: A41.59 Other Gram-negative sepsis (principal); N12 Tubulo-interstitial nephritis, not specified as acute or chronic; N40.0 Benign prostatic hyperplasia without lower urinary tract symptoms; N26.1 Atrophy of kidney (terminal); R19.03 Right lower quadrant abdominal swelling, mass and lump; E87.6 Hypokalemia; E11.9 Type 2 diabetes mellitus without complications; I10 Essential (primary) hypertension; E78.5 Hyperlipidemia, unspecified; G89.29 Other chronic pain; M54.9 Dorsalgia, unspecified; I25.10 Atherosclerotic heart disease of native coronary artery without angina pectoris; Z79.02 Long term (current) use of antithrombotics/antiplatelets; Z79.84 Long term (current) use of oral hypoglycemic drugs; Z86.73 Personal history of transient ischemic attack (TIA), and cerebral infarction without residual deficits; Z20.828 Contact with and (suspected) exposure to other viral communicable diseases
CPT/HCPCS: C1769; J0131; Q3014; Q9967

== ENCOUNTER 2020-05-10 11:19 | Day surgery (SDC) | payer MEDICARE ==
[~2020-05-10] VITALS: Ht 170.2 cm; Wt 83.9 kg
[~2020-05-10 11:19] MED LIST changes: +BENADRYL 25MG C25 MG PO; +CEPHALEXIN500 MG PO; +DIAZEPAM5 MG PO; +LEVAQUIN750 M1 PO; +LORTAB 1010 MG PO; +TRAMADOL HCL50 MG PO
[2020-05-10] MEDS ORDERED: PERCOCET 5/325M1 TAB PO (14:18)
[2020-05-10 14:35] VITALS: BP 140/75
== END 2020-05-10 15:00 | disposition home or self-care (01) ==
LOC: ORM 11:19
PROVIDERS: ATTEND Neurological Surgery
PROC: 01N50ZZ Release Median Nerve, Open Approach (ICD-10-PCS; principal; 2020-05-10)
DX: G56.01 Carpal tunnel syndrome, right upper limb (principal); E11.40 Type 2 diabetes mellitus with diabetic neuropathy, unspecified; I12.9 Hypertensive chronic kidney disease with stage 1 through stage 4 chronic kidney disease, or unspecified chronic kidney disease; E11.22 Type 2 diabetes mellitus with diabetic chronic kidney disease; N18.30 Chronic kidney disease, stage 3 unspecified; M51.06 Intervertebral disc disorders with myelopathy, lumbar region; Z79.82 Long term (current) use of aspirin; Z86.73 Personal history of transient ischemic attack (TIA), and cerebral infarction without residual deficits; Z79.02 Long term (current) use of antithrombotics/antiplatelets; Z20.822 Contact with and (suspected) exposure to COVID-19
CPT/HCPCS: J0131